=== PATIENT | female | born 1990 | race Caucasian/White ===

== ENCOUNTER → 2017-12-07 | Outpatient (CLI) | payer BC ==
[~2017-12-07] MED LIST: BCPILLS PO
== END | disposition home or self-care (01) ==
LOC: C.LABSPEC 15:55
PROVIDERS: ATTEND Obstetrics & Gynecology
DX: Z34.01 Encounter for supervision of normal first pregnancy, first trimester (principal)

== ENCOUNTER → 2017-12-10 | Outpatient (CLI) | payer BC ==
[2017-12-10 13:14] LABS: BASO % 0.3 %; BASO ABS # 0.02 K/uL (0-0.2); EOS % 1.5 %; EOS ABS # 0.09 K/uL (0-0.5); HEMATOCRIT 39.1 % (37-47); HEMOGLOBIN 13.7 g/dL (12.0-16.0); IG# 0.03 K/uL (0.00-0.02); LYMPH % 22.6 %; LYMPH ABS # 1.37 K/uL (1.2-3.4); MEAN CELL VOLUME 86.5 fL (80-100); MEAN CORPUSCULAR HEMOGLOBIN 30.3 pg (25-34); MEAN PLATELET VOLUME 10.3 fL (7.4-10.4); MONO % 8.4 %; MONO ABS # 0.51 K/uL (0.11-0.59); NEUT % 66.7 %; NEUT ABS # 4.05 K/uL (1.4-6.5); PLATELET COUNT 209 K/uL (130-400); RED CELL DISTRIBUTION WIDTH CV 12.8 % (11.5-14.5); RED CELL DISTRIBUTION WIDTH SD 40.5 fL (36.4-46.3); WHITE BLOOD COUNT 6.07 K/uL (4.8-10.8)
== END | disposition home or self-care (01) ==
LOC: C.LAB1850 12:35
PROVIDERS: ATTEND Obstetrics & Gynecology
DX: Z34.01 Encounter for supervision of normal first pregnancy, first trimester (principal)

== ENCOUNTER → 2017-12-10 | Outpatient (CLI) | payer BC ==
--- NOTE | 2017-12-16 19:46 | CODING QUERY NO DIAGNOSIS ---
: 1990 TREATMENT RENDERED WITHOUT A DIAGNOSIS To promote full compliance with coding requirements relating to patient care, physician participation is requested in all cases of news copy editor uncertainty. Please assist us with providing a diagnosis/symptom for the test(s) below: A diagnosis/symptom was not documented on your Order. A valid diagnosis/symptom is required to bill all insurances. Please remember that we are unable to code a diagnosis of rule out, probable, possible, questionable, or suspected. Tests that require a diagnosis: DOS: 12/11/17 * CERVIX/ENDOCERVIX THIN PREP DIAGNOSIS: Provider Signature: Date: Thank you Catia Brennan [facility] Information Management Once completed, please kindly fax back to [phone] For questions please call [phone]
== END | disposition home or self-care (01) ==
LOC: C.PAPS 15:07
PROVIDERS: ATTEND Obstetrics & Gynecology
DX: Z34.01 Encounter for supervision of normal first pregnancy, first trimester (principal)

== ENCOUNTER → 2017-12-10 | Outpatient (CLI) | payer BC | END | disposition home or self-care (01) | LOC: C.LABSPEC 13:38 | PROVIDERS: ATTEND Obstetrics & Gynecology | DX: Z34.01 Encounter for supervision of normal first pregnancy, first trimester (principal) ==

== ENCOUNTER → 2018-02-04 | Outpatient (CLI) | payer BC | END | disposition home or self-care (01) | LOC: C.LAB1850 09:08 | PROVIDERS: ATTEND Obstetrics & Gynecology | DX: Z34.02 Encounter for supervision of normal first pregnancy, second trimester (principal) ==

== ENCOUNTER 2018-05-24 21:22 | Inpatient (IN) | payer BC ==
[~2018-05-24] VITALS: Ht 165.1 cm; Wt 92.0 kg
[2018-05-24 22:19] LABS: BASO % 0.5 %; BASO ABS # 0.05 K/uL (0-0.2); EOS % 0.9 %; HEMATOCRIT 35.7 % (37-47); HEMOGLOBIN 12.7 g/dL (12.0-16.0); LYMPH % 8.3 %; LYMPH ABS # 0.91 K/uL (1.2-3.4); MEAN CELL VOLUME 89.3 fL (80-100); MEAN CORPUSCULAR HEMOGLOBIN 31.8 pg (25-34); MONO % 6.7 %; MONO ABS # 0.73 K/uL (0.11-0.59); NEUT % 82.7 %; NEUT ABS # 9.07 K/uL (1.4-6.5); PLATELET COUNT 125 K/uL (130-400); RED CELL DISTRIBUTION WIDTH CV 13.3 % (11.5-14.5); RED CELL DISTRIBUTION WIDTH SD 43.4 fL (36.4-46.3); WHITE BLOOD COUNT 10.96 K/uL (4.8-10.8)
[2018-05-24 22:33] LABS: INR 0.9 (0.9-1.1); PTT PATIENT 25.9 SECONDS (21.0-31.0)
[2018-05-24 22:38] LABS: ALT/SGPT 70 U/L (12-78); AST/SGOT 89 U/L (15-37); CREATININE 0.64 mg/dl (0.60-1.20)
[2018-05-24] MEDS ORDERED: NIFEdipine 10 MG CAP PO STA (22:38)
[2018-05-24] MEDS ORDERED: MAGNESIUM SULFATE 40GM / WTR 1,000 ML IV ONE (22:38)
[2018-05-24 22:47] LABS: MEAN CORPUSCULAR HGB CONC 35.6 g/dl (32-36)
[2018-05-24] MEDS ORDERED: BETAMETH SOD PHOS/ACETATE IA 6 MG/ML IM STA (23:31)
[2018-05-24] MEDS ORDERED: ONDANSETRON INJ 2 MG/ML 2 ML VIAL IV STA (23:36)
[2018-05-25 00:22] VITALS: Ht 165.1 cm; Wt 92.0 kg
--- NOTE | 2018-05-25 00:27 | HISTORY & PHYSICAL EXAMINATION ---
DATE OF ADMISSION: 05/24/2018 PRINCIPAL DIAGNOSIS: Severe preeclampsia at 32 weeks' gestation. HISTORY OF PRESENT ILLNESS: The patient is a 28-year-old 1, P0 white female, EDC of 07/18/2018, who presented to the office today for usual OB visit with a pressure of 140/78. She also had 1+ protein in her urine. Her pressure was 142/78 as well she has also had a 14-pound weight gain since her last visit 2 weeks ago. She was started on a 24-hour urine collection. PIH labs were drawn at that time. There was a mild elevation of her ALT and platelets were at 144,000 earlier today. She called with sudden onset of upper back pain, epigastric pain, and nausea. No headache, no visual changes noted by the patient. She arrived here in labor and delivery. Her pressures are running 175s/90s and she has 3+ proteinuria. She continues to have the epigastric pain, but no other PIH symptoms. Labs otherwise today, AST has now climbed to 89 and had been 39, platelets are 125,000 and were 144,000 earlier. PT and PTT are normal. Serum creatinine is also normal. The patient will be transferred to [facility] for further evaluation and treatment because of the nature of her . She understands why we are sending her and she has been accepted by Dr. Tigist Lal, maternal medicine doctor at [facility]. PAST MEDICAL HISTORY: Unremarkable. PAST SURGICAL HISTORY: Remarkable just for tonsils and dental surgery. ALLERGIES: She has no known drug allergies. 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 Pap smears have been within normal limits. Dating for this was confirmed at 8 weeks' gestation. HISTORY: Blood type is A positive, antibody screen is negative. Rubella is immune. RPR is nonreactive. Hepatitis is negative. HIV is negative. Chlamydia and GC are negative. Glucolas have been within normal limits. Anatomy scan was complete and normal. Hemoglobin at 28 weeks was 13.2, hematocrit of 38.4. Today, hemoglobin is 12.7, hematocrit 35.7, platelet count is a 125,000. SOCIAL HISTORY: She does not smoke or drink. FAMILY HISTORY: Noncontributory. PHYSICAL EXAMINATION: VITAL SIGNS: As mentioned above, blood pressures have been running 170s/90s with 3+ proteinuria. LUNGS: Clear to auscultation. HEART: Regular rate and rhythm. No murmurs or gallops. ABDOMEN: Nontender. There is no CVA tenderness. Fundus is nontender and gravid consistent with a 32-week gestation. PELVIC: Deferred. EXTREMITIES: With 1+ edema and brisk patellar reflexes. -Double footling breech presentation by bedside ultrasound. ASSESSMENT AND PLAN: A 28-year-old with severe preeclampsia, presenting at 32 weeks' gestation, now magnesium sulfate has been begun. She will receive betamethasone for her initial dose before she leaves for [place] and transfer will be expedited either by ambulance or by helicopter if it is going to take more than 2 hours to get an ambulance transport. We will use either nifedipine p.o., which she has received already, but also hydralazine 5 mg or 10 mg dose if needed during her trip to [place]. MTDD
--- NOTE | 2018-05-28 19:28 | DISCHARGE SUMMARY ---
DIAGNOSIS: Severe preeclampsia at 32 weeks gestation. HISTORY: The patient is a 28-year-old 1, P0 white female, EDC of 07/18/2018, who presented to the office on the day of admission for her usual OB visit with blood pressure 140/78. She also had 1+ protein in her urine. She has had also a 14-pound weight gain since her last visit 2 weeks ago. She called later in the evening with sudden onset of pain between her shoulder blades that wrapped around to the epigastric area. She presented to labor and delivery. Her pressures were now 175/90s and she had 3+ proteinuria. She continued to have epigastric pain, but no other PIH symptoms. Her labs showed that her AST had elevated, platelets were 125,000, which were down from 144,000 earlier in the day. Because of the presence of what appears to be severe preeclampsia, [facility] was contacted for transfer for further evaluation and treatment because she is only 32 weeks . The transfer is accepted by Dr. Tigist Lal who is a maternal medicine doctor at [facility]. After attempting to get an ambulance transfer over 2 hours and was unsuccessful, the patient was life-flighted to [facility].
== END 2018-05-25 01:28 | disposition other institution, planned readmission (95) | DRG 781 ==
LOC: C.OPB 21:22 → C.LD 21:22 → C.OPB 22:43 → C.LD 22:43
PROVIDERS: ADMIT Obstetrics & Gynecology; ATTEND Obstetrics & Gynecology
DX: O14.13 Severe pre-eclampsia, third trimester (principal); Z3A.32 32 weeks gestation of pregnancy

== ENCOUNTER → 2018-05-24 | Outpatient (CLI) | payer BC ==
[2018-05-24 12:38] LABS: HEMATOCRIT 36.6 % (37-47); HEMOGLOBIN 12.6 g/dL (12.0-16.0); MEAN CELL VOLUME 89.9 fL (80-100); MEAN CORPUSCULAR HGB CONC 34.4 g/dl (32-36); MEAN PLATELET VOLUME 11.8 fL (7.4-10.4); PLATELET COUNT 144 K/uL (130-400); RED CELL DISTRIBUTION WIDTH CV 13.6 % (11.5-14.5); RED CELL DISTRIBUTION WIDTH SD 44.3 fL (36.4-46.3); WHITE BLOOD COUNT 8.75 K/uL (4.8-10.8)
[2018-05-24 12:50] LABS: ALBUMIN 2.4 gm/dl (3.4-5.0); ALKALINE PHOSPHATASE 136 U/L (45-117); ALT/SGPT 38 U/L (12-78); AST/SGOT 39 U/L (15-37); TOTAL PROTEIN 6.2 gm/dl (6.4-8.2)
== END | disposition home or self-care (01) ==
LOC: C.LAB1850 10:56
PROVIDERS: ATTEND Obstetrics & Gynecology
DX: O16.3 Unspecified maternal hypertension, third trimester (principal); Z3A.00 Weeks of gestation of pregnancy not specified